=== PATIENT | female | born 1980 | race Caucasian/White ===

== ENCOUNTER 2019-07-26 13:33 | Outpatient (CLI) | payer OTHER, SELFPAY ==
--- NOTE | ~2019-07-26 | US_ITS ---
EXAMINATION: US pelvic complete w TV EXAM DATE: 07/26/2019 14:22 INDICATION: Left ovarian cyst. Abnormal MRI at outside facility. TECHNIQUE: Pelvic transabdominal and transvaginal sonogram was performed. There are multiple graysca le and Doppler images available for interpretation. There is no prior study for comparison. FINDINGS: Uterus measures 7.5 x 5.7 x 4.4 cm, and is morphologically normal. Endometrial stripe stoney sures 10 mm, within normal limits. There is no free pelvic fluid. Right adnexa: The ovary measures 3.6 x 1.2 x 2.3 cm and is morphologically normal. Ovarian vascular f low confirmed. Left adnexa: The ovary measures 4.6 x 3.9 x 2.7 cm, containing 2 cystic regions, one anechoic at 2.8 x 2.8 x 1.6 cm and the other Complex predominantly hypoechoic measuring 3.2 x 2.1 x 2.5 which could b e hemorrhagic cyst or endometrioma, but a 6 week follow-up pelvic sonogram is recommended. Ovarian va scular flow confirmed. IMPRESSION: Small complex left ovarian lesion probably benign histology but a 6 week follow-up pelvic sonogram recommended. Reviewed, dictated and finalized at location A.
== END 2019-07-26 13:34 | disposition home or self-care (01) ==
PROVIDERS: PCP Internal Medicine; Visit Provider Obstetrics & Gynecology
DX: N83.202 Unspecified ovarian cyst, left side (principal)
CPT/HCPCS: 76830; 76856

== ENCOUNTER 2019-09-20 14:34 | Outpatient (CLI) | payer OTHER, SELFPAY ==
--- NOTE | ~2019-09-20 | US_ITS ---
EXAMINATION: US pelvic complete w TV DATE: 09/20/2019 15:12 INDICATION: Left ovarian cyst TECHNIQUE: Multiple transabdominal and endovaginal sonographic images of the pelvis were obtained. COMPARISON: 07/26/2019 FINDINGS: The uterus measures 6.4 x 3.4 x 4.6 cm. The endometrial complex measures 3 mm. The right ov henrique measures 2.6 x 1.9 x 1.8 cm. The left ovary measures 2.8 x 1.9 x 1.8 cm. No persistent left ovari an cyst is identified. There is normal vascular flow in the ovaries. There is a small volume of likel y physiologic free fluid in the pelvis. IMPRESSION: 1. Normal pelvic ultrasound. Resolved left ovarian cysts. Reviewed, dictated and finalized at location A.
--- NOTE | ~2019-09-20 | MM_ITS ---
EXAMINATION: MM screening anneliese BI w adolph HISTORY: Screening mammogram TECHNIQUE: Craniocaudal and mediolateral oblique 3-D tomosynthesis images were obtained and synthetic 2-D images were generated. CAD analysis was submitted and interpreted. COMPARISON: No prior mammogram is available for comparison at this institution. BREAST PARENCHYMAL COMPOSITION: The breasts are heterogeneously dense, which may obscure small masses . FINDINGS: There is no evidence of suspicious mass, calcification, or architectural distortion to sugg est malignancy in either breast. There has been no suspicious interval change. IMPRESSION: 1. No mammographic evidence of malignancy. 2. Recommend routine screening mammography in one year. BI-RADS Category 1: Negative Reviewed, dictated and finalized at location A.
== END 2019-09-20 14:35 | disposition home or self-care (01) ==
PROVIDERS: PCP Internal Medicine; Visit Provider Obstetrics & Gynecology
DX: Z12.31 Encounter for screening mammogram for malignant neoplasm of breast (principal); N83.209 Unspecified ovarian cyst, unspecified side
CPT/HCPCS: 76830; 76856; 77063; 77067

== ENCOUNTER 2020-02-02 16:44 | Emergency (ER) | payer OTHER, SELFPAY ==
--- NOTE | ~2020-02-02 | XR_ITS ---
EXAMINATION: XR chest 2V DATE: 02/02/2020 21:09 INDICATION: Dizziness. TECHNIQUE: Frontal and lateral views of the chest were obtained. COMPARISON: None. FINDINGS: The chest demonstrates clear lungs without pneumonia, pleural effusion, or pneumothorax. Th e heart size is normal. IMPRESSION: 1. No acute cardiopulmonary disease. Reviewed, dictated and finalized at location A. IS INSTRUCTOR
--- NOTE | ~2020-02-02 | CT_ITS ---
EXAMINATION: CTA brain carotid DATE: 02/02/2020 21:12 INDICATION: Dizziness. Neck pain. Hand tingling. TECHNIQUE: Computed tomographic angiography (CTA) of the head was performed without and with 100 mL O mnipaque-350 intravenous contrast. CTA of the neck was performed with intravenous contrast. Automated exposure control and iterative reconstruction technique were employed. The dose-length product was 1 668.11 mGy-cm. Maximum intensity projection and volume rendered 3D-reconstructions were created by ced palacio technologist on a separate workstation. COMPARISON: None. FINDINGS: HEAD CTA: There is no intracranial hemorrhage, acute infarction, or abnormal intracranial mass lesion . The ventricles are normal in size. The paranasal sinuses are clear. There is a trace left mastoid e ffusion. Left vertebral artery is dominant. There is no significant stenosis of basilar artery or the posterior cerebral arteries. The posterior communicating arteries are normal. There is no significan t stenosis of the intracranial internal carotid arteries or anterior or middle cerebral arteries. Ant erior communicating artery is normal. There is no aneurysm. NECK CTA: There is mild emphysema. There are no pathologically enlarged lymph nodes. There is no sign ificant stenosis of the vertebral arteries. There is no visible plaque in right internal carotid misty ry. There is mild plaque in left internal carotid artery. There is 0% stenosis of the proximal right internal carotid artery relative to normal distal artery lumen diameter (NASCET criteria). There is 0 % stenosis of the proximal left internal carotid artery relative to normal distal artery lumen diamet er. There is moderate cervical spondylosis. IMPRESSION: 1. Normal brain. No aneurysm or significant intracranial internal stenosis. 2. 0% stenosis of the proximal internal carotid arteries relative to normal distal artery lumen diame ters (NASCET criteria). Reviewed, dictated and finalized at location A. HUSKER MACHINE OPERATOR IMPRESSION: 1. Normal brain. No aneurysm or significant intracranial internal stenosis. 2. 0% stenosis of the proximal internal carotid arteries relative to normal dis precious artery lumen diameters (NASCET criteria).
[2020-02-02 17:50] VITALS: BP 130/87; PULSE 87; RESP 18; TEMP 36.9; O2SAT 97
[2020-02-02 18:51] VITALS: BP 130/97; PULSE 87; RESP 18; O2SAT 100
--- NOTE | 2020-02-02 19:06 | ED.GENADULT ---
HPI - General Adult General Chief complaint: Unspecified Stated complaint: dizziness Time Seen by Provider: 02/02/20 19:03 Source: patient and family Mode of arrival: ambulatory Limitations: no limitations History of Present Illness HPI narrative: Patient is a 39-year-old female with a history of chronic neck pain who presents for evaluation of worsening neck pain and bilateral hand tingling over the past 4 days. 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 She denies facial numbness or weakness. She does report sinus congestion and ear fullness. She denies discharge or ear pain. She denies fever, chills, nausea or vomiting. No abdominal pain. She states she feels somewhat unsteady when she walks but has had no recent falls or injuries. She denies chest pain or shortness of breath. Related Data Home Medications Medication Instructions Recorded Confirmed alprazolam 0.5 mg PO TID PRN 01/28/19 01/28/19 duloxetine [Cymbalta] 60 mg PO DAILY 01/28/19 01/28/19 tramadol 50 mg PO Q6H PRN 01/28/19 01/28/19 vitamin B complex 1 tablet PO DAILY 07/18/19 trazodone 02/02/20 Allergies Allergy/AdvReac Type Severity Reaction Status Date / Time No Known Allergies Allergy Verified 02/02/20 18:52 Review of Systems Review of Systems: Narrative: CONSTITUTIONAL: Denies fever, chills, or sweats. EYES: Denies visual changes, redness, or discharge. ENT: Reports rhinorrhea, denies sore throat or otalgia reports ear fullness, reports congestion CARDIOVASCULAR: Denies chest pain, palpitations, or edema. RESPIRATORY: Denies cough or dyspnea. GASTROINTESTINAL: Denies abdominal pain, nausea, vomiting, or diarrhea. GENITOURINARY: Denies dysuria or hematuria. SKIN: Denies rash or itching. MUSCULOSKELETAL: Denies back pain, reports left-sided neck pain NEUROLOGIC: Denies headache, reports tingling in both hands, reports dizziness, denies weakness PMFSH Past Medical History Medical History (Updated 02/02/20 @ 21:34 by Destiny Gomez MD) Anxiety Cervicalgia Depression Spinal stenosis Urinary symptom or sign Vaginal delivery x 2 Family History Family History Mother Family history of hypercholesterolemia Social History Social History Smoking status: Smoker, status unknown Alcohol intake: never Exam Narrative: Exam Narrative: GENERAL: Awake, alert, conversant HEAD: Normocephalic, atraumatic. EYES: PERRLA and EOMI. ENT: Nares clear, no rhinorrhea or epistaxis. Mucous membranes moist. Right TM normal. Left TM with bowing, ear effusion without erythema or bulging. No sign of purulent discharge posterior to the tympanic membrane. NECK: Supple. No preauricular cervical lymphadenopathy. CHEST: No respiratory distress, breathing even and non labored HEART: Regular rate, sinus rhythm ABDOMEN:Non distended, non tender EXTREMITIES: Normal range of motion. No edema. SKIN: Warm, dry, no rash. NEURO:No focal deficits. Alert and oriented x3. Finger to nose intact bilaterally. EOMs intact without nystagmus. No facial droop/asymmetry noted bilaterally. Grimace intact. Intact sensation in face. Hearing intact bilaterally. Shoulder shrug intact. Strength 5/5 bilateral upper extremities. Strength 5/5 bilateral lower extremities. Reflexes 2+ patellar. Heel to carrasco intact bilaterally. Ambulatory with a narrow base, steady gait, no ataxia. Course Vital Signs Vital signs: Vital Signs Temperature 36.9 C 02/02/20 17:50 Pulse Rate 87 02/02/20 17:50 Respiratory Rate 18 02/02/20 17:50 Blood Pressure 130/87 02/02/20 17:50 Pulse Oximetry 97 02/02/20 17:50 Temperature 36.9 C 02/02/20 17:50 Pulse Rate 87 02/02/20 18:51 Respiratory Rate 18 02/02/20 18:51 Blood Pressure 130/97 H
--- NOTE | 2020-02-02 19:22 | ECG_ITS ---
Measurements Intervals [place] Rate: 76 P: 20 IA: 150 QRS: 40 QRSD: 93 T: 37 QT: 356 QTc: 401 Interpretive Statements SINUS RHYTHM NORMAL ECG Electronically Signed On 02-03-2020 6:59:42 CLEARANCE CENTER MANAGER by Trace Cabrera D.O.
[2020-02-02] MEDS: MECLIZINE HCL 25 MG TABLET PO (19:44)
[2020-02-02] MEDS: SODIUM CHLORIDE 0.9% IV 1,000 ML 999 ML IV CONT (19:44)
[2020-02-02 20:08] LABS: Basophils Percent Auto 0.2 % (0.2-1.2); Eosinophils Absolute Auto 0.1 K/mm3 (0-0.3); Hematocrit 34.5 % (37.0-47.0); Hemoglobin 11.4 g/dL (12.0-15.0); Immature Granulocyte Absolute 0.02 K/mm3 (0.00-0.031); Immature Granulocyte Percent A 0.2 % (0-0.5); Lymphocytes Absolute Auto 3.31 K/mm3 (0.9-3.2); Lymphocytes Percent Auto 38.2 % (18.3-44.2); Mean Corpuscular Hemoglobin 30.5 pg (26-34); Mean Corpuscular Volume 92.2 fl (80-100); Mean Platelet Volume 10.9 fl (7.4-10.4); Monocytes Absolute Auto 0.5 K/mm3 (0.1-0.6); Monocytes Percent Auto 5.2 % (2.6-8.5); Neutrophils Absolute Auto 4.8 K/mm3 (1.3-6.7); Neutrophils Percent Auto 55.2 % (45.5-73.1); Platelet Count Result 270 k/mm3 (150-375); Red Blood Count 3.74 M/mm3 (4.2-5.4); Red Cell Distribution Width 12.5 % (11.5-14.5); White Blood Count 8.7 K/mm3 (4.5-10.0)
[2020-02-02 20:17] LABS: Prothrombin Time 13.5 Seconds (11.1-14.7)
[2020-02-02 20:18] LABS: Partial Thromboplastin Time 25.4 SECONDS (22.3-36.8)
[2020-02-02 20:19] LABS: Alanine Aminotransferase 13 U/L (4-35); Albumin Level 3.8 g/dL (3.5-5.1); Alkaline Phosphatase 45 U/L (38-126); Anion Gap 4 mmol/L (8-16); Aspartate Amino Transferase 22 U/L (14-36); Bilirubin,Total 0.3 mg/dL (0.2-1.3); Blood Urea Nitrogen 9 mg/dL (7-17); Calcium 8.9 mg/dL (8.4-10.2); Carbon Dioxide 32 mmol/L (22-30); Chloride 100 mmol/L (98-107); Estimated CRCL calculation 66 ml/min; Estimated Glomerular Filt Rate > 60; Glucose 84 mg/dL (65-105); Potassium 3.3 mmol/L (3.4-5.0); Sodium 136 mmol/L (137-145)
--- NOTE | 2020-02-02 20:45 | PC.NURSE ---
Patient being taken to CT and xray.
[2020-02-02 21:41] LABS: Add Urine Microscopic? NO; Appearance Urine Clear (Clear); Bilirubin Urine Negative (Negative); Blood Urine Negative (Negative); Color Urine Straw (Yellow); Glucose Urine UA Negative (Negative); Ketones Urine Negative (Negative); Leukocyte Esterase Ur Negative LEU/UL (Negative); Nitrate Urine Negative (Negative); Protein Urine Negative (Negative); Specific Grav Ur 1.006 (1.001-1.035); Urobilinogen Urine Negative mg/dL (<2.0)
== END 2020-02-02 22:01 | disposition home or self-care (01) ==
PROVIDERS: Emergency Provider Emergency Medicine; PCP Internal Medicine
DX: H93.8X2 Other specified disorders of left ear (principal); J01.00 Acute maxillary sinusitis, unspecified; F41.9 Anxiety disorder, unspecified; F32.9 Major depressive disorder, single episode, unspecified
CPT/HCPCS: 36415; 70496; 70498; 71046; 80053; 81003; 85025; 85610; 85730; 93005; 96360; 99284; A9270; J7030; Q9967

== ENCOUNTER 2020-08-21 08:05 | Outpatient (CLI) | payer OTHER, SELFPAY ==
--- NOTE | ~2020-08-21 | CT_ITS ---
EXAMINATION: CT sinus wo con DATE: 08/21/2020 08:21 INDICATION: Chronic sinusitis TECHNIQUE: Computed tomography (CT) of the paranasal sinuses was performed without intravenous contra st. The dose-length product (DLP) was 296.82 mGy-cm. Iterative reconstruction was used. COMPARISON: None FINDINGS: There is normal development and pneumatization of the paranasal sinuses. There is mild muco martin thickening of the maxillary sinuses, right greater than left. There is minimal opacification of t he anterior ethmoidal air cells. The frontal and sphenoid sinuses are clear. There are small mastoid effusions. The bilateral ostiomeatal complexes are patent. Visualized soft tissues are unremarkable. There is fibrous union posterior C1 arch. IMPRESSION: 1. Mild sinus disease as detailed above. 2. Small mastoid effusions. Reviewed, dictated and finalized at location A.
== END 2020-08-21 08:06 ==
LOC: MICIMG 08:06
PROVIDERS: Visit Provider Allergy & Immunology
DX: J31.0 Chronic rhinitis (principal)
CPT/HCPCS: 70486

== ENCOUNTER 2021-02-24 14:37 | Outpatient (CLI) | payer OTHER, SELFPAY ==
[2021-02-24 20:02] LABS: Free T4 Free Thyroxine Reflex 0.98 ng/dL (0.78-2.19)
[2021-02-25 06:03] LABS: Total Triiodothyronine (T3) 1.21 NG/ML (0.97-1.69)
[2021-02-26 05:43] LABS: FSH 13.4 mIU/mL (***)
== END 2021-02-24 14:38 | disposition home or self-care (01) ==
LOC: ANHBWCLAB 14:39
PROVIDERS: Visit Provider Obstetrics & Gynecology
DX: R61 Generalized hyperhidrosis (principal)
CPT/HCPCS: 36415; 83001; 84439; 84443; 84480

== ENCOUNTER 2022-05-11 16:38 | Emergency (ER) | payer OTHER, SELFPAY ==
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
[2022-05-11 16:49] VITALS: BP 148/98; PULSE 96; RESP 16; O2SAT 97
--- NOTE | 2022-05-11 17:21 | ECG_ITS ---
Measurements Intervals [place] Rate: 79 P: 15 NH: 143 QRS: 43 QRSD: 106 T: 31 QT: 361 QTc: 416 Interpretive Statements SINUS RHYTHM COMPARED TO ECG 02/02/2020 19:40:50 NO SIGNIFICANT CHANGES Electronically Signed On 05-12-2022 11:26:35 FLAKER OPERATOR by Celine Huddleston M.D.
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
[2022-05-11 18:18] LABS: Basophils Percent Auto 0.3 % (0.2-1.2); Eosinophils Absolute Auto 0.2 K/mm3 (0-0.3); Eosinophils Percent Auto 2.2 % (0-4.4); Hematocrit 36.6 % (37.0-47.0); Hemoglobin 11.7 g/dL (12.0-15.0); Immature Granulocyte Absolute 0.01 K/mm3 (0.00-0.031); Immature Granulocyte Percent A 0.1 % (0-0.5); Lymphocytes Absolute Auto 2.99 K/mm3 (0.9-3.2); Lymphocytes Percent Auto 40.7 % (18.3-44.2); Mean Corpuscular Hemoglobin 29.2 pg (26-34); Mean Corpuscular Volume 91.3 fl (80-100); Mean Platelet Volume 11.3 fl (7.4-10.4); Monocytes Absolute Auto 0.4 K/mm3 (0.1-0.6); Monocytes Percent Auto 5.4 % (2.6-8.5); Neutrophils Absolute Auto 3.8 K/mm3 (1.3-6.7); Neutrophils Percent Auto 51.3 % (45.5-73.1); Platelet Count Result 233 k/mm3 (150-375); Red Blood Count 4.01 M/mm3 (4.2-5.4); Red Cell Distribution Width 12.6 % (11.5-14.5); White Blood Count 7.4 K/mm3 (4.5-10.0)
[2022-05-11 18:27] LABS: Alanine Aminotransferase 18 U/L (6-35); Albumin Level 4.1 g/dL (3.5-5.1); Alkaline Phosphatase 46 U/L (38-126); Anion Gap 4 mmol/L (8-16); Aspartate Amino Transferase 20 U/L (14-36); Bilirubin,Total 0.4 mg/dL (0.2-1.3); Blood Urea Nitrogen 13 mg/dL (7-17); Calcium 8.5 mg/dL (8.4-10.2); Carbon Dioxide 31 mmol/L (22-30); Chloride 98 mmol/L (98-107); Estimated CRCL calculation 57 ml/min; Estimated Glomerular Filt Rate > 60; Glucose 143 mg/dL (65-110); Potassium 3.4 mmol/L (3.4-5.0); Sodium 133 mmol/L (137-145)
[2022-05-11] MEDS: HYDROcodone/acetaminophen (*CRX) 7.5-325 MG TABLET 1 TAB PO (18:46)
== END 2022-05-11 19:26 | disposition home or self-care (01) ==
PROVIDERS: Emergency Provider Physician Assistant; PCP Internal Medicine
DX: S06.9X9A Unspecified intracranial injury with loss of consciousness of unspecified duration, initial encounter (principal); S19.9XXA Unspecified injury of neck, initial encounter; M79.644 Pain in right finger(s); F41.9 Anxiety disorder, unspecified; F32.A Depression, unspecified; Z87.891 Personal history of nicotine dependence; V47.5XXA Car driver injured in collision with fixed or stationary object in traffic accident, initial encounter
CPT/HCPCS: 36415; 70450; 72125; 72131; 73130; 80053; 85025; 93005; 99284; A9270; L0140

== ENCOUNTER 2022-05-15 13:44 | Emergency (ER) | payer OTHER, SELFPAY ==
[2022-05-15 13:57] VITALS: BP 119/86; PULSE 100; RESP 20; TEMP 37; O2SAT 100
--- NOTE | 2022-05-15 14:02 | ED.URI ---
HPI - URI/Sore Throat General Chief Complaint: Upper Respiratory Infection Stated Complaint: SORE THROAT/EARACHE Time Seen by Provider: 05/15/22 14:02 Source: patient, RN notes reviewed and old records reviewed Mode of arrival: ambulatory Limitations: no limitations History of Present Illness HPI Narrative: 41 year old female who presents to [facility] care with 3 day duration of sore throat and right ear pain with some head congestion. patient reports no cough or any fevers. Pateint reports that she has been taking some generic Sudafed for her symptoms without resolution. patient reports that her throat is sore especially with swallowing rates discomfort 5/10, patient does have swollen painful lymph nodes in neck. MD elicited complaint: sore throat and other (right ear pain) Onset (ago): day(s) (3) Pain scale (0-10): 5 Able to tolerate fluids by mouth: Yes Associated symptoms: nasal congestion, sore throat and ear pain (right) Treatments prior to arrival: other (decogestant) Related Data Home Medications Medication Instructions Recorded Confirmed alprazolam 0.5 mg tablet 0.5 mg PO TID PRN Anxiety 01/28/19 05/15/22 duloxetine 60 mg capsule,delayed 60 mg PO DAILY 01/28/19 05/15/22 release (Cymbalta) tramadol 50 mg tablet 50 mg PO Q6H PRN Pain 01/28/19 05/15/22 vitamin B complex (B 1 tablet PO DAILY 07/18/19 05/15/22 Complex-Vitamin B12 tablet) multivitamin 1 tablet PO DAILY 02/24/21 05/15/22 Allergies Allergy/AdvReac Type Severity Reaction Status Date / Time No Known Allergies Allergy Verified 05/15/22 13:54 Review of Systems Review of Systems: CONSTITUTIONAL: Denies malaise, chills, sweats, or fever. EYES: Denies visual changes, redness, or discharge. ENT: Reports rhinorrhea, congestion, sinus pain, right otalgia positive sore throat. CARDIOVASCULAR: Denies chest pain, palpitations, or edema. RESPIRATORY: Reports no cough.? Denies dyspnea. GASTROINTESTINAL: Denies abdominal pain, nausea, vomiting, diarrhea SKIN: Denies rash or itching. MUSCULOSKELETAL: Denies myalgia. NEUROLOGIC: Denies headache. All systems reviewed & are unremarkable except as noted in HPI and below PMFSH Past Medical History Medical History Anxiety Cervicalgia Depression Spinal stenosis Urinary symptom or sign Vaginal delivery x 2 Surgical History Surgical History H/O removal of cyst S/P foot surgery, left Family History Family History Mother Family history of hypercholesterolemia Social History Social History (Updated 05/15/22 @ 14:25 by Destiny Hodges NP) Smoking status: Former smoker Alcohol intake: never Substance use type: does not use Gender identity (if verbalized by the patient): Female Comments At time of signature, agree with nursing past medical, surgical, social and family history. There is no relevant family history pertinent to the presenting complaint Exam Narrative: GENERAL: Well-appearing, well-nourished, and in no acute distress. HEAD: Normocephalic EYES: PERRLA, conjunctivae clear ENT: Nares clear, turbinates edematous and erythematous, clear discharge, head congestion voiced. Mucous membranes moist. TM pearly ford with dull light reflex bilaterally; no tragal tenderness. Oropharynx erythematous without lesions. Tonsils red and enlarged with white exudate noted, no drooling, no hoarseness, no trismus, uvula midline red and swollen, painful swallowing. NECK: Supple. lymphadenopathy CHEST: Clear to auscultation, breath sounds equal. No wheezing, rhonchi, rales, or stridor. No respiratory distress, speaks in full sentences.SAO2 100% on room air. HEART: Regular rate and rhythm. No murmur heard. SKIN: Warm, dry, no rash. NEURO: Alert and oriented x3. PSYCH: Normal mood and affect Course Course Anne
== END 2022-05-15 14:20 | disposition home or self-care (01) ==
PROVIDERS: Emergency Provider Registered Nurse; PCP Internal Medicine
DX: J03.90 Acute tonsillitis, unspecified (principal); Z87.891 Personal history of nicotine dependence; M48.00 Spinal stenosis, site unspecified; F41.9 Anxiety disorder, unspecified
CPT/HCPCS: 87081; 87880; 99213; G0463

== ENCOUNTER 2024-06-27 12:53 | Emergency (ER) | payer OTHER, SELFPAY ==
[2024-06-27 13:06] VITALS: BP 136/102; PULSE 110; RESP 18; TEMP 36.4; O2SAT 100
--- OUTSIDE RECORDS SUMMARY | 2024-06-27 14:00 | XMS_ITS | Encounter Summary ---
Author Organization [facility] Address [address] [place] [address] Care Team Providers Care Smoking Pipe Repairer Name Role Phone Martin Borges MD Primary Care Provider [phone] Reason for Visit * Reason Onset Date Comments Needs Appointment 05/02/2024 Encounter Details Date Type Department Care Team (Late Contact Info) Description 05/02/2024 Telephone [facility] Care [address] [place] [address] Zeus Lindsey PA NO ADDRESS ON FILE Needs Appointment Social History Tobacco Use Types Packs/Day Years Used Date Smoking Tobacco: Former Cigarettes 1 15 0 12/07/2002 - 12/07/2017 Passive Smoke Exposure: Past Smokeless Tobacco: Never Alcohol Use Standard Drinks/Week Comments Not Currently 2 (1 standard drink = 0.6 oz pur e alcohol) Comments No Sex and Gender Information Value Date Recorded Sex Assigned at Not on file 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 Gender Identity Not on file Sexual Orientation Not on file documented as of this encounter Plan of Treatment Upcoming Encounters Date Type Department Care Team (Late st Contact Info) Description 07/20/2024 11:00 AM CDT Office Visit [address] [place] [address] Martin Borges MD [address] [place] [address] [address] [place] [address] documented as of this encounter Visit Diagnoses Not on filedocumented in this encounter Care Teams Smoking Pipe Repairer Relationship Specialty Start Date End Date Martin Borges MD PCP - General Internal Medicine 08/03/11 documented as of this encounter
--- OUTSIDE RECORDS SUMMARY | 2024-06-27 14:00 | XMS_ITS | Clinical Summary ---
Author Organization [facility] Address [address] [place] [address] Care Team Providers Care Talent Advisor Name Role Phone Martin Borges MD Primary Care Provider [phone] Allergies No known active allergies Medications azelastine (ASTELIN) 137 mcg/actuation nasal spray Administer 2 Sprays in each nostril 2 times daily. 30 mL 2 04/24/19 21 Active Additional Information Patient not taking.Reported on 06/22/2023 zolpidem (AMBIEN) 5 mg tabletIndicati ons:Other insomnia Take 1 Tablet (5 mg) by mouth nightly as needed for Insomnia. 15 Tablet 3 06/25/19 21 Active Additional Information Patient not taking.Reported on 06/22/2023 montelukast (Singulair) 10 mg tablet Take 1 Tablet (10 mg) by mouth daily at bedtime. 30 Tablet 11 10/23/19 21 Active Additional Information Patient not taking.Reported on 06/22/2023 baclofen (LIORESAL) 20 mg tablet Take 1 Tablet (20 mg) by mouth 3 times daily. 90 Tablet 3 07/17/19 22 Active Additional Information Patient not taking.Reported on 06/22/2023 rizatriptan (Maxalt-MANAGER MANAGEMENT) 10 mg Tablet, Rapid Dissolve Place 1 Tablet (10 mg) inside cheek every 2 hours as needed for Migraine. may repeat in 2 hours; max dose 30mg in 24 hours 12 Tablet 2 09/02/19 22 Active Additional Information Patient not taking.Reported on 06/22/2023 QUEtiapine (SEROquel) 25 mg tablet Take 1 Tablet (25 mg) by mouth 2 times daily. 30 Tablet 3 04/15/19 24 Active Additional Information Patient not taking.Reported on 06/22/2023 valACYclovir (Valtrex) 1 gram tablet Take 1 Tablet by mouth 3 times daily. 21 Tablet 06/22/19 24 Active amoxicillin-cl avulanate (AUGMENTIN) 875-125 mg tablet Take 1 Tablet by mouth every 12 hours. 20 Tablet 06/22/19 Active Additional Information Patient not taking.Reported on 08/20/2023 meloxicam (Mobic) 15 mg tablet Take 1 Tablet (15 mg) by mouth daily. 30 Tablet 3 08/20/19 24 Active pregabalin (Lyrica) 50 mg Capsule Take 1 Capsule (50 mg) by mouth every 8 hours. 90 Capsule 1 11/08/19 24 Active QUEtiapine (SEROquel) 25 mg tablet TAKE 1 TABLET(25 MG) BY MOUTH DAILY AT BEDTIME 30 Tablet 2 02/08/20 24 Active QUEtiapine (SEROquel) 25 mg tablet TAKE 1 TABLET(25 MG) BY MOUTH DAILY AT BEDTIME 30 Tablet 2 02/14/20 24 Active QUEtiapine (SEROquel) 25 mg tablet TAKE 1 TABLET(25 MG) BY MOUTH DAILY AT BEDTIME 30 Tablet 2 02/16/20 24 Active DULoxetine (CYMBALTA) 60 mg Capsule, Delayed Release(E.C.) TAKE 1 CAPSULE BY MOUTH EVERY DAY 90 Capsule 1 02/21/20 24 Active ALPRAZolam (XANAX) 0.5 mg tabletIndicati ons:Anxiety state TAKE 1 TABLET(0.5 MG) BY MOUTH THREE TIMES DAILY NEEDED FOR ANXIETY 90 Tablet 2 05/18/19 25 Active traMADoL (ULTRAM) 50 mg tabletIndicati ons:Cervical stenosis of spine TAKE 1 TABLET(50 MG) BY MOUTH EVERY 6 HOURS NEEDED FOR PAIN 90 Tablet 3 06/27/19 25 Active traMADoL (ULTRAM) 50 mg tabletIndicati ons:Cervical stenosis of spine Take 1 Tablet (50 mg) by mouth every 6 hours as needed for Pain. 90 Tablet 3 11/26/19 24 025 Discontinued Active Problems Patient Care Coordination No te Formatting of this note migh t be different from the original. Prev 06/22/23 Problem Noted Date Diagnosed Date Fungal rash of trunk 04/25/2020 Mixed hyperlipidemia 12/02/2017 Hypoglycemia 08/07/2011 Orthostatic hypotension 08/07/2011 Anxiety state 08/07/2011 Ganglion cyst 08/07/2011 Resolved Problems Problem Noted Date Diagnosed Date Resolved Date Chronic blood loss anemia 12/02/2017 Tobacco abuse 08/07/2011 11/25/2016 Encounters Date Type Department Care Team Description 06/25/2024 [facility] Internal Medicine [address] [address] Martin Borges MD Cervical stenosis of spine 06/14/2024 External Device Data STL ABSTRACTION Provider, Abstract 06/06/2024 External Device Data ST[facility] ABSTRACTION Provider, Abstract 06/06/2024 External Device Data [facility] ABSTRACTION Provider, Abstract 06/03/2024 External Device Data [facility] ABSTRACTION Provider, Abstract 06/02/2024 External Device Data [facility] ABSTRACTION Provider, Abstract 05/30/2024 External Device Data [facility] ABSTRACTION Provider, Abstract 05/18/[address] [place] [phone] Martin Borges MD Anxiety state 05/16/2024 External Device Data [facility] ABSTRACTION Provider, Abstract 05/09/2024 External Device Data [facility] ABSTRACTION Provider, Abstract 05/04/[address] [place] [address] Zeus Lindsey PA RESCHEDULING APPOINTMENT 05/02/2024 [place] [address] [place] [address] Zeus Lindsey PA Needs Appointment 04/27/2024 [place] [address] [place] [address] Zeus Lindsey PA Needs Appointment 04/19/2024 External Device Data [facility] ABSTRACTION Provider, Abstract 04/18/2024 External Device Data [facility] ABSTRACTION Provider, Abstract from Last 3 Months Immunizations Immunization Administration Dates Next Due (ADACEL/BOOSTRIX)(10 YR UP) TDAP VACCINE, 0.5ML, IM 09/01/2021,08/07/2011 (PFIZER)(12 YR UP) COVID-19 VACCINE - EMERGENCY USE AUTHORIZATION, MRNA, [id number](PF) 30 MCG/0.3 ML IM SUSP 12/11/2020,11/20/2020 (PNEUMOVAX 23)(50 YRS UP) PN EUMOCOCCAL POLYSACCHARIDE (PPV23) 0.5 ML, IM 04/26/2020 INFLUENZA VACCINE QUADRIVALE NT 6 MOS UP CELL DERIVED PF IM 01/05/2019 INFLUENZA VACCINE QUADRIVALE NT 6 MOS UP PF IM 01/04/2023,02/03/2021,01/26/2020 Influenza Seasonal Unspecifi ed Formulation IM 01/24/2020,01/06/2019,12/11/2016 Family History Medical History Relation Name Comments Healthy Father Depression Mother Carlee ramirez Healthy Mother Carlee ramirez Relation Name Status Comments Brother Alive Father Alive Mother Carlee ramirez Alive Social History Tobacco Use Types Packs/Day Years Used Date Smoking Tobacco: Former Cigarettes 1 15 0 12/07/2002 - 12/07/2017 Passive Smoke Exposure: Past Smokeless Tobacco: Never Tobacco Cessation:Counseling Given: No Alcohol Use Standard Drinks/Week Comments Not Currently 2 (1 standard drink = 0.6 oz pur e alcohol) Comments No Sex and Gender Information Value Date Recorded Sex Assigned at Not on file Legal Sex 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 Gender Identity Not on file Sexual Orientation Not on file Last Filed Vital Signs Vital Sign Reading Time Taken Comments Blood Pressure 130/80 08/20/2023 11:02 AM CDT Pulse 103 08/20/2023 11:02 AM CDT Temperature 36.3 C (97.3 F) 01/04/2023 11:52 AM CDT Respiratory Rate 17 01/04/2023 11:52 AM CDT Oxygen Saturation 98% 08/20/2023 11:02 AM CDT Inhaled Oxygen Concentration - - Weight 52.6 kg (116 lb) 08/20/2023 11:02 AM CDT Height 152.4 cm (5') 08/20/2023 11:02 AM CDT Body Mass Index 22.65 08/20/2023 11:02 AM CDT Plan of Treatment Upcoming Encounters Date Type Department Care Team (Late st Contact Info) Description 07/20/2024 11:00 AM CDT Office Visit [facility] Primary [facility] [address] [place] [address] Martin Borges MD [address] [facility] [address] [place] [address] Health Maintenance Due Date Last Done Comments HEPATITIS B VACCINES (1 of 3 - 19+ 3-dose series) 07/10/1998 PAP SMEAR 07/10/2000 CERVICAL CANCER SCREENING 07/10/2009 HPV/Cotest (30-65) 07/10/2009 PAP SMEAR 07/10/2009 BREAST CANCER SCREENING 09/19/2020 09/20/2019 INFLUENZA VACCINE (#1) 2023 , 02/03/2021, 01/26/2020, Additional history exists COVID-19 Vaccine ( - 2023- season) 2023 12/11/2020, 11/20/2020 Preventative Visit- Commercial 03/29/2024 06/22/2023, 01/04/2023, 09/01/2021, Additional history exists DTAP/TDAP/TD VACCINES (3 - Td or Tdap) 09/02/2031 09/01/2021, 08/07/2011 HPV VACCINES Aged Out No longer eligi ble based on patient's age to complete this topic Procedures Procedure Name Priority Date/Time Associated Diagnosis Comments MAMMO SCREENING BILAT Routine 09/20/2019 from Last 3 Months or Most Recently Relevant to Health Maintenance Results * MAMMO SCREENING BILAT (09/20/2019) Anatomical Region Laterality Modality Breast Bilateral Mammography us Abstract Provider MAMMO ORDERABLES Final Result from Last 3 Months or Most Recently Relevant to Health Maintenance [place] [place] [id number] POS II Advance Directives For more information, please contact: [phone] * Full Code (Latest Code Status on File) Date Activated Date Inactivated Comments 09/15/2011 11:58 AM 09/15/2011 4:18 PM Care Teams Talent Advisor Relationship Specialty Start Date End Date Martin Borges MD PCP - General Internal Medicine 08/03/11
--- OUTSIDE RECORDS SUMMARY | 2024-06-27 14:00 | XMS_ITS | Encounter Summary ---
Author Organization [facility] Address [address] [place] [address] Care Team Providers Care Disability Hearing Officer Name Role Phone Martin Borges MD Primary Care Provider [phone] Reason for Visit * Reason Comments Med Refill Encounter Details Date Type Department Care Team (Late Contact Info) Description 06/25/2024 Refill [facility] Internal Medicine [address] [address] Martin Borges MD [address] [place] [address] [address] [place] [address] Cervical stenosis of spine Social History Tobacco Use Types Packs/Day Years Used Date Smoking Tobacco: Former Cigarettes 1 15 0 12/07/2002 - 12/07/2017 Passive Smoke Exposure: Past Smokeless Tobacco: Never Alcohol Use Standard Drinks/Week Comments Not Currently 2 (1 standard drink = 0.6 oz pur e alcohol) Comments No Sex and Gender Information Value Date Recorded Sex Assigned at Not on file 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 Gender Identity Not on file Sexual Orientation Not on file documented as of this encounter Plan of Treatment Upcoming Encounters Date Type Department Care Team (Late Contact Info) Description 07/20/2024 11:00 AM CDT Office Visit [facility] Primary Care [address] [place] [address] Martin Borges MD [address] [place] [address] [address] [place] [address] documented as of this encounter Visit Diagnoses Diagnosis Cervical stenosis of spine Spinal stenosis in cervical region documented in this encounter Care Teams Disability Hearing Officer Relationship Specialty Start Date End Date Martin Borges MD PCP - General Internal Medicine 08/03/11 documented as of this encounter
--- OUTSIDE RECORDS SUMMARY | 2024-06-27 14:00 | XMS_ITS | Encounter Summary ---
Author Organization [facility] Address [address] [place] [address] Phone Care Team Providers Care Automatic Maintainer Name Role Phone Martin Borges MD Primary Care Provider [phone] Encounter Details Date Type Department Care Team (Late st Contact Info) Description 02/14/2021 [facility] [address] [place] [address] Destin Orr, DO [address] [place] [address] Pre-op testing (Primary Dx) Social History Tobacco Use Types Packs/Day Years Used Date Smoking Tobacco: Former Cigarettes 2012 Smokeless Tobacco: Never Alcohol Use Standard Drinks/Week Comments Never 0 (1 standard drink = 0.6 oz pur e alcohol) Sexually Active Control Partners Comments Yes None Male Comments Unknown Sex and Gender Information Value Date Recorded Sex Assigned at Not on file Legal Sex Female 10:54 PM CDT Gender Identity Not on file Sexual Orientation Not on file COVID-19 Exposure Response Date Recorded In the last month, have you been in contact with someone who was confirmed or suspected to have Coronavirus / COVID-19? No / Unsure 02/17/2021 10:28 AM PELT SHEARER documented as of this encounter Plan of Treatment Not on file documented as of this encounter Results * (ABNORMAL) HEMOGLOBIN & HEMATOCRIT (H&H) (02/17/2021 10:52 AM PELT SHEARER) HEMOGLOBIN (HGB) 11.9(L) 12.0 - 15.8 g/dL 02/17/2021 12:00 PM PELT SHEARER [facility] HEMATOCRIT (HCT) 37.8 36.0 - 47.0 % 02/17/2021 12:00 PM PELT SHEARER [facility] Blood Venipuncture / Unknown 02/17/2021 10:52 AM PELT SHEARER 02/17/2021 11:55 AM PELT SHEARER Destin Orr DO HEMATOLOGY ORDERABL ES Final Result [facility] [address] [place] [address] documented in this encounter Visit Diagnoses Diagnosis Pre-op testing- Primary Preoperative examination, unspecified documented in this encounter Care Teams Automatic Maintainer Relationship Specialty Start Date End Date Martin Borges MD [address] [place] [address] PCP - General 02/17/21 documented as of this encounter
--- OUTSIDE RECORDS SUMMARY | 2024-06-27 14:00 | XMS_ITS | Clinical Summary ---
Author Organization [facility] [employer] Address [address] [place] [address] Care Team Providers Care Broaching Machine Set Up Operator Name Role Phone Unavailable Primary Care Provider Unavailabl e Source Comments [facility] [employer],non-owned Affiliates and Associated Physician Practices is amultiple site organization consisting of ambulatory clinics and hospital sitesin [place], [place], [place] and [place]. This disclosure is being madepursuant to the Care Everywhere program and may not contain all information available regarding this patient. Last updated [employer] Allergies No known active allergies Medications * Be aware that medications may not be up to date on this document. Alwaysverify current medications with the patient. Medication Sig Dispensed Refills Start Date End Date Status DULoxetine HCl (CYMBALTA PO) Active ALPRAZolam (XANAX) 2 MG tablet Take 2 mg by mouth 3 times daily as needed for Anxiety Active Social History Tobacco Use Types Packs/Day Years Used Date Smoking Tobacco: Never Smokeless Tobacco: Never Alcohol Use Standard Drinks/Week Comments Yes 0 (1 standard drink = 0.6 oz pur e alcohol) Sex and Gender Information Value Date Recorded Sex Assigned at Not on file Gender Identity Not on file Sexual Orientation Not on file Last Filed Vital Signs Vital Sign Reading Time Taken Comments Blood Pressure 102/60 05/22/2019 2:34 PM AMMONIA OPERATOR Pulse 90 05/22/2019 2:34 PM AMMONIA OPERATOR Temperature 37.2 C (99 F) 05/22/2019 2:34 PM AMMONIA OPERATOR Respiratory Rate 16 05/22/2019 2:34 PM AMMONIA OPERATOR Oxygen Saturation 96% 05/22/2019 2:34 PM AMMONIA OPERATOR Inhaled Oxygen Concentration - - Weight - - Height 162.6 cm (5' 4 ) 05/22/2019 2:34 PM AMMONIA OPERATOR Body Mass Index - - Plan of Treatment Health Maintenance Due Date Last Done Comments LIPID TESTING 1979 MAMMOGRAM 1979 PAP SMEAR 1979 HIV SCREENING 07/10/1994 HEPATITIS C SCREENING 07/06/1997 DTAP/TDAP/TD VACCINES (1 - Tdap) 07/10/1998 HEPATITIS B VACCINE (1 of 3 - 19+ 3-dose series) 07/10/1998 COVID-19 VACCINE (1 - 2023-2 5 season) 2023 INFLUENZA VACCINE (#1) 2023 DEPRESSION SCREENING 03/29/2024 ZOSTER VACCINE (1 of 2) 07/10/2029 HIB VACCINE Aged Out No longer eligi ble based on patient's age to complete this topic HPV VACCINE Aged Out No longer eligi ble based on patient's age to complete this topic MENINGOCOCCAL (Group B) VACC INE SHARED DECISION-MAKING Aged Out No longer eligibl e based on patient's age to complete this topic MENINGOCOCCAL GROUPS A/C/Y/W VACCINE Aged Out No longer eligible b ased on patient's age to complete this topic PNEUMOCOCCAL VACCINE Aged Out No long er eligible based on patient's age to complete this topic
--- OUTSIDE RECORDS SUMMARY | 2024-06-27 14:00 | XMS_ITS | Clinical Summary ---
Author Organization [facility] Address [address] [place] [address] Phone Care Team Providers Care Room Service Bellhop Name Role Phone Martin Borges MD Primary Care Provider [phone] Allergies No known active allergies Medications ALPRAZolam (Xanax) 0.25 MG Tablet Take 0.25 mg by mouth 3 times daily as needed. Active DULoxetine (Cymbalta) [address] Particles Take 60 mg by mouth daily. Active traMADol (ULTRAM) 50 MG Tablet Take 50 mg by mouth every 8 hours as needed. Active Cyanocobalamin (B-12 PO) Take by mouth daily. Active oxyCODONE-aceta minophen (PERCOCET) 5-325 MG TabletIndicatio ns:AVN (avascular necrosis of bone) (HCC) Take 1 Tablet by mouth every 4 hours as needed for Moderate or more severe pain. 30 Tablet 02/19/2021 Active Family History Medical History Relation Name Comments No Known Problems Father No Known Problems Mother Relation Name Status Comments Father Alive Mother Alive Social History Tobacco Use Types Packs/Day Years Used Date Smoking Tobacco: Former Cigarettes 1 - 2012 Smokeless Tobacco: Never Alcohol Use Standard [...] Sign Reading Time Taken Comments Blood Pressure 121/76 02/19/2021 9:45 AM MAGNET PLACER Pulse 86 02/19/2021 9:45 AM MAGNET PLACER Temperature 36.1 C (97 F) 02/19/2021 9:45 AM MAGNET PLACER Respiratory Rate 14 02/19/2021 9:45 AM MAGNET PLACER Oxygen Saturation 100% 02/19/2021 9:45 AM MAGNET PLACER Inhaled Oxygen Concentration - - Weight 51.5 kg (113 lb 8 oz) 02/19/2021 6:09 AM MAGNET PLACER Height 152.4 cm (5') 02/19/2021 6:09 AM MAGNET PLACER Body Mass Index 22.17 02/19/2021 6:09 AM MAGNET PLACER Plan of Treatment Health Maintenance Due Date Last Done Comments Hepatitis C Virus (HCV) Screening 1980 Hepatitis B Immunization (1 of 3 - 19+ 3-dose series) 07/10/1998 Influenza Immunization (#1) 2023 110 10/2020, 01/26/2020, 01/24/2020, Additional history exists SARS-COV-2 Immunization (2023- season) 2023 12/11/2020, 11/20/2020 Respiratory Syncytial Virus (RSV) Immunization (Adult) (1 - 1-dose 75+ series) 07/10/2054 DTaP/Tdap/Td Immunization Discontinued 06/08/2015, 01/2012 TdaP Immunization Completed 06/08/2015, 08/07/2011 Pneumococcal Immunization Combined Aged Out 04/26/2020, 05/05/2016, 02/19/2015 No longer eligible based on patient's age to complete this topic Meningococcal Immunization (ACWY) Aged Out No longer eligible based on patient's age to complete this topic Rotavirus Immunization Aged Out No lo nger eligible based on patient's age to complete this topic Insurance [facility] Care Teams Room Service Bellhop Relationship Specialty Start Date End Date Martin Borges MD [address] [place] [address] PCP - General 02/17/21
[2024-06-27 15:24] LABS: Influenza A QL RT-PCR Negative (Negative); Influenza B QL RT-PCR Negative (Negative); RSV RNA, RT-PCR Negative (Negative); SARS-CoV-2 RNA PCR Negative (Negative)
--- NOTE | 2024-06-27 15:30 | ED.GENADULT ---
HPI - General Adult General Chief complaint: Skin/Abscess/Foreign Body Stated complaint: thinks has ringworm Time Seen by Provider: 06/27/24 14:34 History of Present Illness HPI narrative: Patient is a 43-year-old female who presents ER with concerns for rash. She had if a small red rash and the proximal inner thighs psoas several days is clearing up. She has noticed some red itchy spots behind her ears and has also had some bumps in the posterior aspect of the right Achilles region. No fevers chills or sweats. No drainage. Concerned she may have exposure to ringworm. No loss of hair. She also reports generalized fatigue but no runny nose sore throat or cough. Related Data Home Medications ?Medication ?Instructions ?Recorded ?Confirmed ?Last Taken ?Type alprazolam 0.5 mg tablet 0.5 mg PO TID PRN Anxiety 01/28/19 05/15/22 Unknown History duloxetine 60 mg capsule,delayed 60 mg PO DAILY 01/28/19 05/15/22 Unknown History release (Cymbalta) tramadol 50 mg tablet 50 mg PO Q6H PRN Pain 01/28/19 05/15/22 Unknown History vitamin B complex (B 1 tablet PO DAILY 07/18/19 05/15/22 Unknown History Complex-Vitamin B12 tablet) multivitamin 1 tablet PO DAILY 02/24/21 05/15/22 Unknown History Allergies Allergy/AdvReac Type Severity Reaction Status Date / Time No Known Allergies Allergy Verified 06/27/24 14:32 PMFSH Past Medical History Medical History Anxiety Cervicalgia Depression Spinal stenosis Urinary symptom or sign Vaginal delivery x 2 Surgical History Surgical History H/O removal of cyst S/P foot surgery, left Family History Family History Mother Family history of hypercholesterolemia Social History Social History (Updated 05/15/22 @ 14:25 by Destiny Hodges NP) Smoking status: Former smoker Alcohol intake: never Substance use type: does not use Gender identity (if verbalized by the patient): Female Exam Narrative: GENERAL: Well-appearing, well-nourished, and in no acute distress. HEAD: Normocephalic, atraumatic. ENT: Mucous membranes moist. Normal ears. CHEST: Clear to auscultation. No respiratory distress. HEART: Regular rate and rhythm. Normal peripheral pulses. ABDOMEN: Soft, nontender, nondistended, normal active bowel sounds. EXTREMITIES: Normal range of motion. No edema. SKIN: Warm, dry, no rash. NEURO: Alert and oriented x3. PSYCH: Normal mood and affect. Course Course Emergency Course: No shingles/cellulitis/abscess. Skin appears dry. There is no annular lesions or breaking of the skin. This felt to be dry skin or eczema as opposed to any sort of fungal or bacterial infection. Follow-up with PCP. Vital Signs Vital signs: Vital Signs Temperature 97.5 F L 06/27/24 13:06 Pulse Rate 110 H 06/27/24 13:06 Respiratory Rate 18 06/27/24 13:06 Blood Pressure 136/102 H 06/27/24 13:06 Pulse Oximetry 100 06/27/24 13:06 Oxygen Delivery Room Air 06/27/24 13:06 Temperature 97.5 F L 06/27/24 13:06 Pulse Rate 110 H 06/27/24 13:06 Respiratory Rate 18 06/27/24 13:06 Blood Pressure 136/102 H 06/27/24 13:06 Pulse Oximetry 100 06/27/24 13:06 Oxygen Delivery Room Air 06/27/24 13:06 Medical Decision Making Vital Signs Vital Signs: Vital Signs Temperature 97.5 F L 06/27/24 13:06 Pulse Rate 110 H 06/27/24 13:06 Respiratory Rate 18 06/27/24 13:06 Blood Pressure 136/102 H 06/27/24 13:06 Pulse Oximetry 100 06/27/24 13:06 Oxygen Delivery Room Air 06/27/24 13:06 Temperature 97.5 F L 06/27/24 13:06 Pulse Rate 110 H 06/27/24 13:06 Respiratory Rate 18 06/27/24 13:06 Blood Pressure 136/102 H 06/27/24 13:06 Pulse Oximetry 100 06/27/24 13:06 Oxygen Delivery Room Air 06/27/24 13:06 Lab Data Labs: Lab Results 06/27/24 Range/Units 14:34 Influenza A (RT-PCR) Negative (Negative) Influenza B (RT-PCR) Negative (Negative) RSV (RT-PCR) Negative (Negative) SARS-CoV-2 RNA (RT-PCR) Negative (Negative) Discharge Plan Discharge Clinical Impression: Fatigue, Dry skin Patient Disposition: Home, Self-Care Condition: Stable Instructions: Eczema (ED) Additional Instructions: Return ER if you have worsening rash, you developed fever 100.4? F, or you have additional concerns. Follow-up with your primary care doctor. Patient Language: Comoran Prescriptions: New Eucerin Eczema Relief 1 % cream 1 applic topical BID Qty: 226 0RF No Action tramadol 50 mg Tablet 50 mg PO Q6H PRN (Reason: Pain) alprazolam 0.5 mg Tablet 0.5 mg PO TID PRN (Reason: Anxiety) duloxetine [Cymbalta] 60 mg Capsule,Delayed Release(Dr/Ec) 60 mg PO DAILY amoxicillin 875 mg tablet 875 mg PO Q12H Qty: 20 0RF vitamin B complex [B Complex-Vitamin B12] Tablet 1 tablet PO DAILY multivitamin Tablet 1 tablet PO DAILY Follow-up/Referrals: Jony,Martin Darling MD [Primary Care Provider] - 1 Week
--- OUTSIDE RECORDS SUMMARY | 2024-06-27 16:28 | XMS_ITS | Encounter Summary ---
Author Organization [facility] Address [address] [place] [address] Phone Care Team Providers Care Hand Laster Name Role Phone Martin Borges MD Primary Care Provider Encounter Details Date Type Department Care Team (Late st Contact Info) Description 02/14/2021 Transcribe Orders [facility] Pre[facility] [address] [place] [address] Destin Orr, DO [address] [place] [address] Pre-op testing (Primary Dx) Social History Tobacco [...] COVID-19? No / Unsure 02/17/2021 10:28 AM STRINGED INSTRUMENT REPAIRER documented as of this encounter Plan of Treatment Not on file documented as of this encounter Results * (ABNORMAL) HEMOGLOBIN & HEMATOCRIT (H&H) (02/17/2021 10:52 AM STRINGED INSTRUMENT REPAIRER) HEMOGLOBIN (HGB) 11.9(L) 12.0 - 15.8 g/dL 02/17/2021 12:00 PM STRINGED INSTRUMENT REPAIRER [facility] HEMATOCRIT (HCT) 37.8 36.0 - 47.0 % 02/17/2021 12:00 PM STRINGED INSTRUMENT REPAIRER [facility] Blood Venipuncture / Unknown 02/17/2021 10:52 AM STRINGED INSTRUMENT REPAIRER 02/17/2021 11:55 AM STRINGED INSTRUMENT REPAIRER Dsetin Orr DO HEMATOLOGY ORDERABL ES Final Result [facility] [address] [place] [address] documented in this encounter Visit Diagnoses Diagnosis Pre-op testing- Primary Preoperative examination, unspecified documented in this encounter Care Teams Hand Laster Relationship Specialty Start Date End Date Martin Borges MD [address] [place] [phone] PCP - General 02/17/21 documented as of this encounter
--- OUTSIDE RECORDS SUMMARY | 2024-06-27 16:28 | XMS_ITS | Clinical Summary ---
Author Organization [facility] Address [address] [place] [address] Care Team Providers Care Hydroelectric Station Chief Name Role Phone Unavailable Primary Care Provider Unavailabl e Source Comments [facility],non-owned Affiliates and Associated Physician Practices is amultiple site organization consisting of ambulatory clinics and hospital sitesin [place], [place], [place] and [place]. This disclosure is being madepursuant to the Care Everywhere program and may not contain all information available regarding this patient. 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
--- OUTSIDE RECORDS SUMMARY | 2024-06-27 16:28 | XMS_ITS | Encounter Summary ---
Author Organization [facility] Address 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 Gender Identity Not on file Sexual Orientation Not on file documented as of this encounter Plan of Treatment Upcoming Encounters Date Type Department Care Team (Late Contact Info) Description 07/20/2024 11:00 AM CDT Office Visit [facility] Primary Care [address] [place] [address] Martin Borges MD [address] [place] [address] [address] [place] [address] documented as of this encounter Visit Diagnoses Diagnosis Cervical stenosis of spine Spinal stenosis in cervical region documented in this encounter Care Teams Sportspersons Relationship Specialty Start Date End Date Martin Borges MD PCP - General Internal Medicine 08/03/11 documented as of this encounter
--- OUTSIDE RECORDS SUMMARY | 2024-06-27 16:28 | XMS_ITS | Encounter Summary ---
Author Organization [facility] Address 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 Gender Identity Not on file Sexual Orientation Not on file documented as of this encounter Plan of Treatment Upcoming Encounters Date Type Department Care Team (Late st Contact Info) Description 07/20/2024 11:00 AM CDT Office Visit [address] [place] [address] Martin Borges MD [address] [place] [address] [address] [place] [address] documented as of this encounter Visit Diagnoses Not on filedocumented in this encounter Care Teams Lower In Supervisor Relationship Specialty Start Date End Date Martin Borges MD PCP - General Internal Medicine 08/03/11 documented as of this encounter
--- OUTSIDE RECORDS SUMMARY | 2024-06-27 16:28 | XMS_ITS | Clinical Summary ---
Author Organization [facility] Address [address] [place] [address] Care Team Providers Care Patent Litigation Associate Name Role Phone Martin Borges MD Primary Care Provider [phone] Allergies No known active allergies Medications azelastine [...] Information Patient not taking.Reported on 06/22/2023 rizatriptan (Maxalt-XM1 TANK DRIVER) 10 mg Tablet, Rapid Dissolve Place 1 [...] Date Type Department Care Team Description 06/25/2024 [facility] Internal Medicine [address] [phone] Martin Borges MD Cervical stenosis of spine 06/14/2024 External Device Data [facility] ABSTRACTION Provider, Abstract 06/06/2024 External Device Data [facility] ABSTRACTION Provider, Abstract 06/06/2024 External Device Data [facility] ABSTRACTION Provider, Abstract 06/03/2024 External Device Data [facility] ABSTRACTION Provider, Abstract 06/02/2024 External Device Data [facility] ABSTRACTION Provider, Abstract 05/30/2024 External Device Data [facility] ABSTRACTION Provider, Abstract 05/18/[address] [place] [phone] Martin Borges MD Anxiety state 05/16/2024 External Device Data [facility] ABSTRACTION Provider, Abstract 05/09/2024 External Device Data [facility] ABSTRACTION Provider, Abstract 05/04/[address] [place] [address] Zeus Lindsey PA RESCHEDULING APPOINTMENT 05/02/2024 [place] [address] [place] [address] Zeus Lindsey PA Needs Appointment 04/27/2024 [place] [address] [place] [address] Zeus Lindsey PA Needs Appointment 04/19/2024 External Device Data [facility] ABSTRACTION Provider, Abstract 04/18/2024 External Device Data [facility] ABSTRACTION Provider, Abstract from Last 3 Months Immunizations Immunization Administration Dates Next Due (ADACEL/BOOSTRIX)(10 YR UP) TDAP VACCINE, 0.5ML, IM 09/01/2021,08/07/2011 (PFIZER)(12 YR UP) COVID-19 VACCINE - EMERGENCY USE AUTHORIZATION, MRNA, [id number](PF) 30 MCG/0.3 ML IM SUSP 12/11/2020,11/20/2020 (PNEUMOVAX [...] on file 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 Gender Identity Not on file Sexual Orientation [...] Description 07/20/2024 11:00 AM CDT Office Visit [facility] Primary Care [address] [place] [address] Martin Borges MD [address] [facility] [address] [place] [address] Health Maintenance Due Date Last [...] Most Recently Relevant to Health Maintenance [place] [address] [id number] [place] Advance Directives For more information, please contact: [phone] * Full Code (Latest Code Status on File) Date Activated Date Inactivated Comments 09/15/2011 11:58 AM 09/15/2011 4:18 PM Care Teams Patent Litigation Associate Relationship Specialty Start Date End Date Martin Borges MD PCP - General Internal Medicine 08/03/11
--- OUTSIDE RECORDS SUMMARY | 2024-06-27 16:28 | XMS_ITS | Clinical Summary ---
Author Organization [facility] Address [address] [place] [address] Phone Care Team Providers Care Aircraft Rigging And Controls Mechanic Name Role Phone Martin Borges MD Primary Care Provider [phone] Allergies No known active allergies Medications ALPRAZolam [...] Comments Blood Pressure 121/76 02/19/2021 9:45 AM CUTTER APPRENTICE HAND Pulse 86 02/19/2021 9:45 AM CUTTER APPRENTICE HAND Temperature 36.1 C (97 F) 02/19/2021 9:45 AM CUTTER APPRENTICE HAND Respiratory Rate 14 02/19/2021 9:45 AM CUTTER APPRENTICE HAND Oxygen Saturation 100% 02/19/2021 9:45 AM CUTTER APPRENTICE HAND Inhaled Oxygen Concentration - - Weight 51.5 kg (113 lb 8 oz) 02/19/2021 6:09 AM CUTTER APPRENTICE HAND Height 152.4 cm (5') 02/19/2021 6:09 AM CUTTER APPRENTICE HAND Body Mass Index 22.17 02/19/2021 6:09 AM CUTTER APPRENTICE HAND Plan of Treatment Health Maintenance Due Date [...] patient's age to complete this topic Insurance [facility] Care Teams Aircraft Rigging And Controls Mechanic Relationship Specialty Start Date End Date Martin Borges MD [address] [place] [address] PCP - General 02/17/21
== END 2024-06-27 15:37 | disposition home or self-care (01) ==
PROVIDERS: Physician Assistant; Emergency Provider Emergency Medicine; PCP Internal Medicine
DX: R53.83 Other fatigue (principal); L85.3 Xerosis cutis; Z20.822 Contact with and (suspected) exposure to COVID-19; F41.9 Anxiety disorder, unspecified; F32.A Depression, unspecified
CPT/HCPCS: 87637; 99283